=== PATIENT | female | born 1985 | race Caucasian/White ===

== ENCOUNTER 2019-06-15 14:04 | Emergency (ER) | payer OTHER ==
[2019-06-15 14:33] VITALS: BP 120/65; PULSE 68; RESP 18; TEMP 97.8
--- NOTE | 2019-06-15 14:50 | XR ---
EXAMINATION TYPE: XR forearm LT DATE OF EXAM: 06/15/2019 COMPARISON: None HISTORY: Left forearm pain following fall TECHNIQUE: 2 view left forearm FINDINGS: There is a oblique fracture of the distal third diaphysis of the ulna the left forearm. No additional fractures are evident. Soft tissues appear normal. IMPRESSION: 1. Oblique fracture left distal diaphyseal forearm
--- NOTE | 2019-06-15 15:06 | ED ---
General Adult HPI - General Chief complaint: Extremity Injury, Upper Stated complaint: injured left arm Time Seen by Provider: 06/15/19 14:09 Source: patient, RN notes reviewed, old records reviewed Mode of arrival: ambulatory Limitations: no limitations - History of Present Illness Initial comments: 33-year-old female patient with no pertinent past medical history presents to chief complaint of left ulnar pain. Patient reports that she was working in bedroom, stumbled, fell forward, caught herself with her forearm on the ground, experienced pain afterwards. Patient has a shunt head or neck. Patient denies any other injury. Systemic: Pt denies fatigue, fever/chills, rash. Pt denies weakness, night sweats, weight loss. Neuro: Pt denies headache, visual disturbances, syncope or pre-syncope. HEENT: Pt denies ocular discharge or irritation, otalgia, rhinorrhea, pharyngitis or notable lymphadenopathy. Cardiopulmonary: Pt denies chest pain, SOB, heart palpitations, dyspnea on exertion. Abdominal/GI: Pt denies abdominal pain, n/v/d. : Pt denies dysuria, burning w/ urination, frequency/urgency. Denies new onset urinary or bowel incontinence. MSK: Pt denies loss of strength or function in extremities. Neuro: Pt denies new onset weakness, paresthesias. - Related Data Home Medications Medication Instructions Recorded Confirmed No Known Home Medications 04/06/16 04/06/16 Allergies Allergy/AdvReac Type Severity Reaction Status Date / Time adhesive Allergy Unknown Verified 05/15/14 22:25 Review of Systems ROS Statement: Those systems with pertinent positive or pertinent negative responses have been documented in the HPI. ROS Other: All systems not noted in ROS Statement are negative. Past Medical History Past Medical History: No Reported History History of Any Multi-Drug Resistant Organisms: None Reported Past Surgical History: Tubal Ligation Past Psychological History: No Psychological Hx Reported Smoking Status: Former smoker Past Alcohol Use History: Occasional Past Drug Use History: None Reported General Exam - General Exam Comments Initial Comments: Constitutional: NAD, AOX3, Pt has pleasant affect. HEENT: NC/AT, trachea midline, neck supple, no lymphadenopathy. Posterior pharynx non erythematous, without exudates. External ears appear normal, without discharge. Mucous membranes moist. Eyes PERRLA, EOM intact. There is no scleral icterus. No pallor noted. Cardiopulmonary: RRR, no murmurs, rubs or gallops, no JVD noted. Lungs CTAB in anterior and posterior beltre. No peripheral edema. Abdominal exam: Abdomen soft and non-distended. Abdomen non-tender to palpation in all 4 quadrants. Bowel sounds active in LLQ. No hepatosplenomegaly. No ecchymosis Neuro: CN II-XII grossly intact. No nuchal rigidity. No raccon eyes, no tate sign, no hemotympanum. No cervical spinal tenderness. MSK: Left midshaft, mild tender to palpation. No crepitus. No ecchymoses. Sensation intact. Flexion extension of wrist intact, patient able wiggle angers. No snuffbox tenderness. No hand tenderness. Neurovascular intact. No posterior calf tenderness bilaterally, homans sign negative bilaterally. Posterior tibialis and radial pulse +2 bilaterally. Sensation intact in upper and lower extremities. Full active ROM in upper and lower extremities, 5/5 stregnth. Limitations: no limitations Course Vital Signs 06/15/19 14:13 Temperature 97.8 F Pulse Rate 68 Respiratory 18 Rate Blood Pressure 120/65 O2 Sat by Pulse 96 Oximetry Medical Decision Making - Medical Decision Making 33-year-old female patient with no pertinent past medical history presents to chief complaint of left ulnar pain. Patient reports that she was working in bedroom, stumbled, fell forward, caught herself with her forearm on the ground, experienced pain afterwards. Patient has a shunt head or neck. Patient denies any other injury. Pt VSS, afebrile. Physical exam displayed: Left midshaft, mild tender to palpation. No crepitus. No ecchymoses. Sensation intact. Flexion extension of wrist intact, patient able wiggle angers. No snuffbox tenderness. No hand tenderness. Neurovascular intact. Plain film performed slightly oblique fracture of left distal diaphysis forearm. Patient placed in ulnar gutter splint. Patient is neurovascularly intact after splint placement. Patient was discharged with orthopedic follow-up. Case discussed with Dr. Monae. Disposition Clinical Impression: Ulna fracture Disposition: HOME SELF-CARE Condition: Stable Instructions (If sedation given, give patient instructions): Arm Fracture in Adults (ED) Additional Instructions: Patient to adhere to previously discussed treatment plan and will take medication(s) as directed. Patient to follow up with PCP in 1-2 days. Patient to return to ED if symptoms do not improve. Follow up with ORTHOPEDIC consult on monday, return to ER if condition worsens. Continue to wear splint. Is patient prescribed a controlled substance at d/c from ED?: No Referrals: Eduardo Ghotra MD [Primary Care Provider] - 1-2 days Rolly Esteban PAC [PHYSICIAN [facility]IEF [facility]] - 1-2 days
[2019-06-15] MEDS ORDERED: ACET/COD 300 MG/30 MG STARTER PACK 6 TAB BTL PO STA (15:10)
== END 2019-06-15 15:26 | disposition home or self-care (01) ==
LOC: EC 14:04
DX: S52.602A Unspecified fracture of lower end of left ulna, initial encounter for closed fracture (principal); Z87.891 Personal history of nicotine dependence; Z91.048 Other nonmedicinal substance allergy status; W01.0XXA Fall on same level from slipping, tripping and stumbling without subsequent striking against object, initial encounter; Y92.003 Bedroom of unspecified non-institutional (private) residence as the place of occurrence of the external cause
CPT/HCPCS: 29125; 99284